=== PATIENT | male | born 1945 | race Caucasian/White ===

== ENCOUNTER 2019-03-16 13:49 | Inpatient (IN) | payer MEDICARE, OTHER ==
[~2019-03-16] VITALS: Ht 175.3 cm; Wt 75.0 kg
[~2019-03-16 13:49] MED LIST: CINA30TA PO; FLO0.4C PO; LOP25T PO; PRED10TA PO; SIRO2TAB2 PO; TACR1CAP28 PO
--- NOTE | 2019-03-16 14:06 | NUR ---
Dr Ann at bedside to eval pt, pt was transferred from [facility] via flight, pt c/o lips numbness starting , woke up at 07 with left hand, tongue, teeth, leg numbess, "I had a hard time walking but I was able too", pt up at bedside without assist, no arm drift, speech is slightly slurred, leaned to left slightly when standing, pt is GCS 15, alert and oriented, resp even and unlabored, skin p/w/d, CT done at [facility] was negative for hemorrhage, received ASA at [facility], pt also sees double
[2019-03-16 14:57] LABS: CLARITY,URINE CLEAR (Clear); COLOR,URINE YELLOW (Yellow); GLUCOSE, URINE NEGATIVE (Neg); KETONES,URINE NEGATIVE (Neg); LEUKOCYTE ESTERASE ,URINE NEGATIVE (Neg); NITRITES, URINE NEGATIVE (Neg); OCCULT BLOOD,URINE SMALL (Neg); PROTEIN,URINE NEGATIVE (Neg); UROBILINOGEN,URINE 0.2 E.U/dL (0.2-1.0)
--- NOTE | 2019-03-16 14:57 | NUR ---
TO MRI WITH BENEDICT OLSON MONITORED
[2019-03-16 15:00] LABS: UA COLLECTION TYPE URINAL
[2019-03-16 15:03] LABS: WBC,URINE 0-4 /HPF (0-4)
[2019-03-16 15:04] LABS: BACTERIA,URINE FEW /HPF (Neg); MUCUS STRANDS NONE SEEN /LPF (Neg); SQUAMOUS EPITHELIAL CELL,UR FEW /LPF (FEW); URINE AMPHETAMINE SCREEN NEGATIVE (Neg); URINE BARBITUATE SCREEN NEGATIVE (Neg); URINE BENZODIAZEPINES SCREEN NEGATIVE (Neg); URINE CANNABINOID SCREEN NEGATIVE (Neg); URINE COCAINE SCREEN NEGATIVE (Neg); URINE METHADONE SCREEN NEGATIVE (Neg); URINE OPIATE SCREEN NEGATIVE (Neg); URINE PHENCYCLIDINE SCREEN NEGATIVE (Neg)
--- NOTE | 2019-03-16 15:10 | NUR ---
STROKE ALERT CALLED OFF BY DR LEE
--- NOTE | 2019-03-16 15:55 | NUR ---
1500 PATIENT TRANSFERRED TO MRI PER CART ON TRANSPORT MONITOR. HR 48-55. PATIENT IS TRANSFERRED ON TO MRI TABLE AND C/O NAUSEA ON AND OFF, RESULTINGI N EMESIS X1. TOLERATED MRI SCAN WITH STABLE VITAL SIGNS THROUGH OUT PROCEDURE. 1515 BP 157/85, HR 48, RR 20, O2 SAT 99% ON 2LPM/NC 1535 BP 169/76, HR 45, RR 18, O2 SAT 99% ON 2LPM/NC 1546 BP 167/78, HR 54, RR 18, O2 SAT 100% ON 2LPM/NC PATIENT RETURNED TO ER #9 PER CART AND PLACED BACK ON [facility] IN ROOM.
--- NOTE | 2019-03-16 16:02 | NUR ---
BACK FROM MRI WITH BENEDICT PT THROWING UP
[2019-03-16] MEDS ORDERED: ondansetron/PF 4mg/2ml inj IV ONE ×2 (16:05→16:55)
[2019-03-16 16:33] LABS: PARTIAL THROMBOPLASTIN TIME 26 SECONDS (22-32)
[2019-03-16 16:35] LABS: BASOPHILS # (AUTO) 0.1 X10'3 (0-0.2); BASOPHILS % (AUTO) 0.8 % (0-1); EOSINOPHILS % (AUTO) 0.3 % (0-6); HEMATOCRIT 42.8 % (42.0-52.0); HEMOGLOBIN 14.3 g/dl (14.0-17.9); LYMPHOCYTES # (AUTO) 2.6 X10'3 (1.1-4.8); LYMPHOCYTES % (AUTO) 29.4 % (21-51); MEAN CORPUSCULAR HEMOGLOBIN 29.9 PG (27.0-31.0); MEAN CORPUSCULAR HGB CONC 33.4 g/dL (33.0-36.5); MEAN CORPUSCULAR VOLUME 89.6 FL (78-98); MEAN PLATELET VOLUME 8.4 FL (7.4-10.4); MONOCYTES # (AUTO) 0.8 X10'3 (0-0.9); MONOCYTES % (AUTO) 9.5 % (2-12); NEUTROPHILS # (AUTO) 5.2 X10'3 (1.8-7.7); PLATELET COUNT 187 X10'3 (140-440); RED BLOOD COUNT 4.78 X10'6 (4.70-6.10); RED CELL DISTRIBUTION WIDTH 14.1 % (11.5-14.5); WHITE BLOOD COUNT 8.7 X10'3 (4.5-11.0)
[2019-03-16 16:37] LABS: ALANINE AMINOTRANSFERASE 17 U/L (12-78); ALBUMIN 3.3 G/DL (3.4-5.0); ALBUMIN/GLOBULIN RATIO 0.9 (1.1-1.5); ALKALINE PHOSPHATASE 115 IU/L (46-116); ANION GAP 10 (8-16); ASPARTATE AMINO TRANSFERASE 23 U/L (10-37); BILIRUBIN,TOTAL 0.6 MG/DL (0.1-1.0); BLOOD UREA NITROGEN 27 MG/DL (7-18); BUN/CREATININE RATIO 16.7 (5.4-32.0); CALCIUM 9.4 MG/DL (8.5-10.1); CHLORIDE 107 MMOL/L (99-107); CREATININE 1.62 MG/DL (0.60-1.10); GLUCOSE 143 MG/DL (70-104); MAGNESIUM 1.5 MG/DL (1.5-2.4); PHOSPHORUS 2.3 MG/DL (2.3-4.5); POTASSIUM 4.3 MMOL/L (3.5-5.1); SODIUM 140 MMOL/L (135-145); TOTAL CARBON DIOXIDE 23.3 MMOL/L (24-32); TOTAL PROTEIN 6.9 G/DL (6.4-8.2); eGFR 42 ML/MIN
[2019-03-16] MEDS ORDERED: magnesium 2GM in 50ml NS 50 ML IV PRN (16:45)
[2019-03-16] MEDS ORDERED: magnesium hydroxide 30ml (MOM) UD suspension PO PRN (16:45)
[2019-03-16] MEDS ORDERED: mag hydrox/Alum hydrox/simeth 30ml oral suspension PO PRN (16:45)
[2019-03-16] MEDS ORDERED: acetaminophen 325mg tablet PO PRN ×2 (16:45)
[2019-03-16] MEDS ORDERED: potassium CL 10mEq/100ml bag 100 ML IV PRN ×2 (16:45)
[2019-03-16] MEDS ORDERED: aspirin 325mg tablet PO ONE (16:45)
[2019-03-16] MEDS ORDERED: magnesium 4gm in 100ml NS 100 ML IV PRN (16:45)
[2019-03-16] MEDS ORDERED: ondansetron/PF 4mg/2ml inj IV PRN (16:45)
[2019-03-16] MEDS ORDERED: potassium Cl 20 mEq SR tablet PO PRN ×2 (16:45)
--- NOTE | 2019-03-16 17:26 | NUR ---
attempted report, nurse to call back
--- NOTE | 2019-03-16 17:36 | NUR ---
report called to Vivi OLSON
--- NOTE | 2019-03-16 17:44 | NUR ---
PT HAS SLURRED SPEECH NOW, LEFT ARM DRIFT, LEFT FACIAL DROOP, SLOW TO RESPOND TO QUESTIONS, DR LEE AWARE, DR HELM, HOSPITALIST, AT BEDSIDE, TELE NEURO CONSULT INITIATED, IS AT BEDSIDE
--- NOTE | 2019-03-16 17:44 | NUR ---
received report from Di OLSON. She called me back to let me know they will be keeping the pt at this time due to worsening sx
--- NOTE | 2019-03-16 17:57 | NUR ---
NEUROLOGIST ON MONITOR TO ASSESS PT
--- NOTE | 2019-03-16 18:13 | NUR ---
NEUROTELE COMPLETED, PLAN OF TREATMENT IS ASA, PHYSICAL THERAPY, SAID SX COULD FLUCTUATE, PT IS ALERT, GCS 15, ORIENTED X3, RESP EVEN AND UNLABORED, SAID LEFT HAND AND LEFT FOOT "FEELS LIKE MEAT", SLIGHT LEFT MOUTH DROOP, SLURRED SPEECH, LEFT ARM AND LEG DRIFT, ABLE TO LIFT OFF BED, REPORT TO JESUS OLSON
--- NOTE | 2019-03-16 18:52 | NUR ---
SPOKE TO DR TERRELL HOSPITALIST ON PHONE DISCUSSED PLAN OF CARE MD WILL ORDER ASA AND IV FLUIDS. PATIENT AND WHO IS AT BEDSIDE ARE CONCERBED ABOUT HIS FLUID STAUS DUE TO HIS KIDNEY TRANSPLANT. I AM UNABLE TO DO A SWALLOW DUE HIS LEFT MINOR FACIAL PARALYSIS: MD AWARE. MD WILL ORDER IV FLUIDS
[2019-03-16] MEDS ORDERED: hydrALAZINE 20mg/ml inj. IV PRN (19:05)
--- NOTE | 2019-03-16 19:07 | NUR ---
SPOKE TO YESENIA MOURA RN ORTHO: SHE IS UNAWARE OF PATIENT; SHE WILL CALL NURSING TELEVISION REPAIR TEACHER.
--- NOTE | 2019-03-16 19:14 | NUR ---
BANK CONSULTANT FROM [facility] CALLED BACK: YESENIA OLSON PATIENT TO GO TO ROOM 4013B AND RN IS WHITNEY GUERRA AND CALLED TO GIVE REPORT AND MARI WILL CALL ME BACK
--- NOTE | 2019-03-16 19:28 | NUR ---
REPORT TO MARI OLSON NEURO/ORTHO. PATIENT TO GO TO ROOM 4013 WITH RN MONITORED
--- NOTE | 2019-03-16 19:32 | NUR ---
Patient in room ED 9. I have received report from WHITNEY Lora and had the opportunity to ask questions and assume patient care.
[2019-03-16] MEDS ORDERED: FLO0.4C PO (19:53)
[2019-03-16] MEDS ORDERED: TACR1CAP28 PO (19:53)
[2019-03-16] MEDS ORDERED: SIRO0.5T PO (19:53)
[2019-03-16] MEDS ORDERED: ERGO500014 PO (19:53)
[2019-03-16] MEDS ORDERED: PRED5TAB PO (19:53)
[2019-03-16] MEDS ORDERED: CINA30TA PO (19:53)
[2019-03-16] MEDS ORDERED: METO-467 PO (19:53)
[2019-03-16] MEDS ORDERED: CYAN-51 PO (19:53)
[2019-03-16] MEDS ORDERED: ATOR10TA87 PO (19:53)
[2019-03-16 20:00] VITALS: BP 156/90
--- NOTE | 2019-03-16 20:25 | NUR ---
Around this time I called May ROOF TECHNICIAN regarding home Meds and she reconcile the medications and gave order for him to have his home medications. I asked her about needing to change the physician to the Border Machine Operator group from the Hospitalist group and she said, that needs to be addressed tomorrow. I had called the vibration engineer Hospitalist and he had recommended that the physician be changed to Border Machine Operator since patient has history of transplant kidney.
[2019-03-16] MEDS ORDERED: ergocalciferol (Vitamin D) 50,000 unit capsule PO SCH (20:45)
[2019-03-16] MEDS: normal saline 1000ml 1,000 ML IV SCH (20:58)
[2019-03-16] MEDS ORDERED: SIRO1TAB6 (21:31)
[2019-03-16] MEDS: tamsulosin 0.4mg capsule PO SCH (21:34)
[2019-03-16] MEDS: atorvastatin 20mg tablet PO SCH (21:34)
[2019-03-16] MEDS ORDERED: TACROLIMUS 1 MG PO SCH (21:37)
[2019-03-16 22:00] VITALS: BP 144/90
[2019-03-16] MEDS: TACROLIMUS 1 MG PO SCH (22:08)
[2019-03-17] VITALS (8 sets, daily range): BP systolic 137–160; BP diastolic 72–100
[2019-03-17] MEDS: heparin, porcine 5000 units/ml vial SQ SCH ×3 (00:14→17:27)
[2019-03-17 02:48] LABS: BASOPHILS # (AUTO) 0.1 X10'3 (0-0.2); BASOPHILS % (AUTO) 1.1 % (0-1); EOSINOPHILS # (AUTO) 0.1 X10'3 (0-0.9); EOSINOPHILS % (AUTO) 1.1 % (0-6); HEMOGLOBIN 13.6 g/dl (14.0-17.9); LYMPHOCYTES # (AUTO) 2.2 X10'3 (1.1-4.8); LYMPHOCYTES % (AUTO) 32.7 % (21-51); MEAN CORPUSCULAR HEMOGLOBIN 29.7 PG (27.0-31.0); MEAN CORPUSCULAR HGB CONC 33.3 g/dL (33.0-36.5); MEAN CORPUSCULAR VOLUME 89.3 FL (78-98); MEAN PLATELET VOLUME 8.4 FL (7.4-10.4); MONOCYTES # (AUTO) 0.8 X10'3 (0-0.9); MONOCYTES % (AUTO) 11.5 % (2-12); NEUTROPHILS # (AUTO) 3.6 X10'3 (1.8-7.7); NEUTROPHILS % (AUTO) 53.6 % (42-75); PLATELET COUNT 171 X10'3 (140-440); RED BLOOD COUNT 4.59 X10'6 (4.70-6.10); RED CELL DISTRIBUTION WIDTH 13.7 % (11.5-14.5); WHITE BLOOD COUNT 6.8 X10'3 (4.5-11.0)
[2019-03-17 03:27] LABS: ANION GAP 11 (8-16); BLOOD UREA NITROGEN 24 MG/DL (7-18); BUN/CREATININE RATIO 15.5 (5.4-32.0); CALCIUM 9.1 MG/DL (8.5-10.1); CHLORIDE 109 MMOL/L (99-107); CHOL/HDL RATIO 2.3 (0.00-4.99); CHOLESTEROL 173 MG/DL (0-200); CREATININE 1.55 MG/DL (0.60-1.10); GLUCOSE 86 MG/DL (70-104); HDL CHOLESTEROL 74 MG/DL (35-60); LDL CHOLESTEROL 85 MG/DL (50-100); MAGNESIUM 1.5 MG/DL (1.5-2.4); POTASSIUM 4.2 MMOL/L (3.5-5.1); SODIUM 141 MMOL/L (135-145); TOTAL CARBON DIOXIDE 21.5 MMOL/L (24-32); TRIGLYCERIDES 64 MG/DL (20-135); eGFR 44 ML/MIN
[2019-03-17] MEDS: normal saline 1000ml 1,000 ML IV SCH ×2 (04:45→17:28)
--- NOTE | 2019-03-17 06:44 | NUR ---
Problems reprioritized. Patient report given, questions answered & plan of care reviewed with WHITNEY Sheikh.
[2019-03-17] MEDS: K and/or MAG REPLACEMENT MC SCH (07:42)
[2019-03-17] MEDS: aspirin 325mg tablet, delayed-release (Ecotrin) PO SCH (07:43)
[2019-03-17] MEDS: cyanocobalamin 500mcg tablet PO SCH (07:43)
[2019-03-17] MEDS: SIROLIMUS 1 MG PO SCH (07:44)
[2019-03-17] MEDS: predniSONE 5mg tablet PO SCH (07:44)
[2019-03-17] MEDS: TACROLIMUS 1 MG PO SCH ×2 (07:45→20:22)
[2019-03-17] MEDS ORDERED: metoprolol tartrate 25mg tablet PO SCH (08:00)
[2019-03-17] MEDS ORDERED: enoxaparin 40mg/0.4ml syringe SQ SCH (08:00)
[2019-03-17] MEDS ORDERED: atorvastatin 10mg tablet PO SCH (08:00)
[2019-03-17] MEDS ORDERED: ergocalciferol (Vitamin D) 50,000 unit capsule PO SCH (08:00)
--- NOTE | 2019-03-17 09:00 | NUR ---
Went in room with to see patient. Patient wanted to get back to bed, attempted but left side was giving out. I had to physically push patient hips back to bed, he didn't have the dexterity to grasp the FWW to help. then ordered a new CT.
--- NOTE | 2019-03-17 11:04 | NUR ---
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 Kori [phone]
[2019-03-17] MEDS: cinacalcet 30mg tablet PO SCH (17:27)
--- NOTE | 2019-03-17 18:32 | NUR ---
Problems reprioritized. Patient report given, questions answered & plan of care reviewed with Leny OLSON.
[2019-03-17] MEDS: atorvastatin 20mg tablet PO SCH (20:21)
[2019-03-17] MEDS: tamsulosin 0.4mg capsule PO SCH (20:25)
[2019-03-18] MEDS: heparin, porcine 5000 units/ml vial SQ SCH ×3 (00:26→16:20)
[2019-03-18] MEDS: normal saline 1000ml 1,000 ML IV SCH ×3 (01:01→21:16)
[2019-03-18 02:00] VITALS: BP 169/91
[2019-03-18 06:19] VITALS: BP 150/81
[2019-03-18 07:11] LABS: BASOPHILS % (AUTO) 0.5 % (0-1); EOSINOPHILS # (AUTO) 0.1 X10'3 (0-0.9); EOSINOPHILS % (AUTO) 1.6 % (0-6); HEMATOCRIT 39.6 % (42.0-52.0); HEMOGLOBIN 13.3 g/dl (14.0-17.9); LYMPHOCYTES # (AUTO) 1.7 X10'3 (1.1-4.8); LYMPHOCYTES % (AUTO) 27.2 % (21-51); MEAN CORPUSCULAR HEMOGLOBIN 29.9 PG (27.0-31.0); MEAN CORPUSCULAR HGB CONC 33.6 g/dL (33.0-36.5); MEAN CORPUSCULAR VOLUME 88.9 FL (78-98); MEAN PLATELET VOLUME 8.6 FL (7.4-10.4); MONOCYTES # (AUTO) 0.7 X10'3 (0-0.9); MONOCYTES % (AUTO) 10.8 % (2-12); NEUTROPHILS # (AUTO) 3.8 X10'3 (1.8-7.7); NEUTROPHILS % (AUTO) 59.9 % (42-75); PLATELET COUNT 173 X10'3 (140-440); RED BLOOD COUNT 4.46 X10'6 (4.70-6.10); RED CELL DISTRIBUTION WIDTH 13.8 % (11.5-14.5); WHITE BLOOD COUNT 6.4 X10'3 (4.5-11.0)
[2019-03-18] MEDS: aspirin 325mg tablet, delayed-release (Ecotrin) PO SCH (07:46)
[2019-03-18] MEDS: cyanocobalamin 500mcg tablet PO SCH (07:46)
[2019-03-18] MEDS: predniSONE 5mg tablet PO SCH (07:46)
[2019-03-18] MEDS: SIROLIMUS 2 MG PO SCH ×2 (07:48→10:25)
[2019-03-18] MEDS: TACROLIMUS 1 MG PO SCH ×2 (07:48→20:08)
[2019-03-18] MEDS: K and/or MAG REPLACEMENT MC SCH (08:00)
[2019-03-18 08:59] LABS: ALBUMIN 2.9 G/DL (3.4-5.0); ANION GAP 7 (8-16); BLOOD UREA NITROGEN 18 MG/DL (7-18); BUN/CREATININE RATIO 11.6 (5.4-32.0); CALCIUM 8.7 MG/DL (8.5-10.1); CHLORIDE 110 MMOL/L (99-107); CREATININE 1.55 MG/DL (0.60-1.10); GLUCOSE 85 MG/DL (70-104); MAGNESIUM 1.3 MG/DL (1.5-2.4); POTASSIUM 4.1 MMOL/L (3.5-5.1); SODIUM 142 MMOL/L (135-145); TOTAL CARBON DIOXIDE 25.4 MMOL/L (24-32); eGFR 44 ML/MIN
--- NOTE | 2019-03-18 09:21 | NUR ---
PATIENT REFUSED TO TAKE HIS 2MG OF SIROLIMUS, PATIENT WOULD ONLY TAKE ONE DUE TO HIS MEDICATION SCHEDULE. PHARMACY NOTIFIED AND GOT DR. VERGARA NAME TO VERIFY THE WAY PATIENT TAKES HIS MED. PATIENT WILL TAKE 2 ONE DAY AND 1 THE NEXT, PATIENT STATES HE TAKES ONE ON AN EVEN DAY, TO DAY IS THE EVEN DAY SO PATIENT REFUSED 2MG PILL TODAY.
--- NOTE | 2019-03-18 09:26 | NUR ---
SPOKE WITH PATIENTS , PATIENT CALLED HER AT 4AM WANTING A DR. JUNG AND THE CHARGE NURSE TO TALK WITH HIM IN THE AM. DR. BELLE IN TODAY ROUNDING. CHARGE NURSE IN TALKING WITH PATIENT.
[2019-03-18 10:00] VITALS: BP 149/87
[2019-03-18 14:00] VITALS: BP 127/85
[2019-03-18] MEDS: cinacalcet 30mg tablet PO SCH (16:20)
[2019-03-18 18:00] VITALS: BP 177/94
--- NOTE | 2019-03-18 18:25 | NUR ---
Patient in room ORTHO 4011. I have received report from Kori OLSON and Mateus WESTFALL and had the opportunity to ask questions and assume patient care.
--- NOTE | 2019-03-18 18:49 | NUR ---
Student documentation: I have reviewed and agree with all interventions, assessments performed and documented by Mateus BOWENS. Addendum: 03/18/19 at 1851 by Kori Lopez RN Student Medication Administration: For this medication-pass time frame, all medication were reviewed, dispensed, administered and documented per hospital policy by Mateus BOWENS.
--- NOTE | 2019-03-18 18:54 | NUR ---
Problems reprioritized. Patient report given, questions answered & plan of care reviewed with Indira OLSON.
[2019-03-18] MEDS: tamsulosin 0.4mg capsule PO SCH (20:08)
[2019-03-18] MEDS: atorvastatin 20mg tablet PO SCH (20:08)
[2019-03-18] MEDS: magnesium Cl slow-release 64mg tablet PO PRN (20:09)
[2019-03-18 22:00] VITALS: BP 150/74
[2019-03-19] MEDS: heparin, porcine 5000 units/ml vial SQ SCH ×3 (00:09→15:34)
[2019-03-19 06:00] VITALS: BP 154/65
[2019-03-19 06:03] LABS: BASOPHILS % (AUTO) 0.5 % (0-1); EOSINOPHILS # (AUTO) 0.1 X10'3 (0-0.9); EOSINOPHILS % (AUTO) 1.4 % (0-6); HEMATOCRIT 38.9 % (42.0-52.0); HEMOGLOBIN 13.1 g/dl (14.0-17.9); LYMPHOCYTES # (AUTO) 2.2 X10'3 (1.1-4.8); LYMPHOCYTES % (AUTO) 30.4 % (21-51); MEAN CORPUSCULAR HEMOGLOBIN 30.1 PG (27.0-31.0); MEAN CORPUSCULAR HGB CONC 33.8 g/dL (33.0-36.5); MEAN CORPUSCULAR VOLUME 88.9 FL (78-98); MEAN PLATELET VOLUME 8.6 FL (7.4-10.4); MONOCYTES # (AUTO) 0.8 X10'3 (0-0.9); MONOCYTES % (AUTO) 11.1 % (2-12); NEUTROPHILS # (AUTO) 4.2 X10'3 (1.8-7.7); NEUTROPHILS % (AUTO) 56.6 % (42-75); PLATELET COUNT 166 X10'3 (140-440); RED BLOOD COUNT 4.37 X10'6 (4.70-6.10); RED CELL DISTRIBUTION WIDTH 13.7 % (11.5-14.5); WHITE BLOOD COUNT 7.4 X10'3 (4.5-11.0)
[2019-03-19 06:26] LABS: ALBUMIN 2.8 G/DL (3.4-5.0); ANION GAP 10 (8-16); BLOOD UREA NITROGEN 18 MG/DL (7-18); BUN/CREATININE RATIO 10.1 (5.4-32.0); CALCIUM 8.4 MG/DL (8.5-10.1); CHLORIDE 109 MMOL/L (99-107); CREATININE 1.78 MG/DL (0.60-1.10); GLUCOSE 83 MG/DL (70-104); MAGNESIUM 1.2 MG/DL (1.5-2.4); SODIUM 143 MMOL/L (135-145); TOTAL CARBON DIOXIDE 24.3 MMOL/L (24-32); eGFR 37 ML/MIN
--- NOTE | 2019-03-19 06:30 | NUR ---
Problems reprioritized. Patient report given, questions answered & plan of care reviewed with Chase OLSON.
--- NOTE | 2019-03-19 06:35 | NUR ---
Patient in room ORTHO 4011. I have received report from Indira OLSON and had the opportunity to ask questions and assume patient care.
[2019-03-19] MEDS: K and/or MAG REPLACEMENT MC SCH (07:06)
[2019-03-19] MEDS: normal saline 1000ml 1,000 ML IV SCH (07:26)
[2019-03-19] MEDS ORDERED: metoprolol tartrate 25mg tablet PO SCH (08:00)
[2019-03-19] MEDS: cyanocobalamin 500mcg tablet PO SCH (08:07)
[2019-03-19] MEDS: aspirin 325mg tablet, delayed-release (Ecotrin) PO SCH (08:08)
[2019-03-19] MEDS: magnesium Cl slow-release 64mg tablet PO PRN ×2 (08:08→15:33)
[2019-03-19] MEDS: predniSONE 5mg tablet PO SCH (08:09)
[2019-03-19] MEDS: SIROLIMUS 1 MG PO SCH (08:09)
[2019-03-19] MEDS: TACROLIMUS 1 MG PO SCH (08:09)
[2019-03-19 10:00] VITALS: BP 115/67
--- NOTE | 2019-03-19 10:20 | NUR ---
Patient up, ambulatory to the shower with SBA, IV wrapped and tele disconnected. Will reconnect patient to monitor and IV when out of shower.
--- NOTE | 2019-03-19 10:40 | NUR ---
Pt out of shower, gown changed, IV reconnected, tele monitor reapplied.
--- NOTE | 2019-03-19 15:05 | NUR ---
Report called to Roxy report given to Shantell FISHER 2
--- NOTE | 2019-03-19 16:00 | NUR ---
Patient discharged to [facility] with all belongings and medications, patient stable upon discharge
== END 2019-03-19 16:22 | DRG 64 ==
LOC: ER 13:50 → ED HOLD 16:41 → ORTHO 4S 20:10
PROVIDERS: ADMIT Hospitalist; ATTEND Family Medicine
DX: I63.9 Cerebral infarction, unspecified (principal); G93.6 Cerebral edema; Z94.0 Kidney transplant status; H53.2 Diplopia; I10 Essential (primary) hypertension; I12.9 Hypertensive chronic kidney disease with stage 1 through stage 4 chronic kidney disease, or unspecified chronic kidney disease; N18.3 Chronic kidney disease, stage 3 (moderate); R00.1 Bradycardia, unspecified; Z79.899 Other long term (current) drug therapy
CPT/HCPCS: 36415; 70450; 70544; 70551; 80048; 80053; 80061; 80305; 81001; 83735; 84100; 84484; 85025; 85610; 85730; 87081; 92508; 92616; 93005; 93306; 93880; 97110; 97112; 97116; 97162; 97530; 99285; G0378; J0604; J1644; J2405; J3420; J7030; J7512